=== PATIENT | male | born 1945 | race Hispanic/Latino ===

== ENCOUNTER 2024-03-29 18:06 | Emergency (ER) | payer MEDICARE ==
[~2024-03-29] VITALS: Ht 162.6 cm; Wt 77.1 kg
[~2024-03-29 18:06] MED LIST: CACL 1GM SYG IVP ONE
[2024-03-29 18:07] VITALS: O2SAT 80
[2024-03-29 18:08] VITALS: BP 0/0; PULSE 0; RESP 0; TEMP 96
--- NOTE | 2024-03-29 18:44 | ERN ---
ED Note History of Present Illness Stated Complaint: CARDIAC ARREST Chief Complaint: CPR/Full Arrest Time Seen by MD: 18:11 Dictation: 79-year-old male presents to the ED via EMS for evaluation of cardiac arrest onset [employer]. CPR is being performed with Ernst. As per EMS patient was found on his bed by his unresponsive after she had stepped out of the room for a minute. EMS mentioned they received a call at 5:11 p.m. and EMS arrived at 5:19 p.m. as per EMS patient is in V-tach and mentioned that they administered 7 EPIs and sodium bicarb. Glucose level of 322 mg/dL. EMS reports that as per , patient had open heart surgery around 10 years ago and has a pacemaker. No other medical or surgical history mentioned. Past Medical History Past Medical History: Unknown Surgical History: Unknown Review of System Dictation Unable to obtain ROS due to clinical status Initial Vital Sign VS Vital Signs Date Time Temp Pulse Resp B/P (MAP) Pulse Ox O2 Delivery O2 Flow Rate FiO2 03/29/24 18:08 96.1 0 0 0/0 80 LMA WITH BVM 15.0 Physical Exam Dictation General: Patient is unresponsive Head/Face: Normocephalic, atraumatic Eyes: Pupils are fixed and nonreactive Neck: Trachea midline Cardiovascular: No pulse present Respiratory: via RAINEY MS/Extremity: No deformities Neuro: ED Course ED Course Vital Signs Date Time Temp Pulse Resp B/P (MAP) Pulse Ox O2 Delivery O2 Flow Rate FiO2 03/29/24 18:08 96.1 0 0 0/0 80 LMA WITH BVM 15.0 Medical Decision Making MDM MDM: Differential diagnosis: Cardiac arrest, respiratory arrest, V-tach Previous outside records reviewed: Old ER visits Patient's prior external medical records from other ER visits were reviewed by me as indicated. Prior testing and results from previous visits were reviewed. Prior tests were taken into account with medical decision making and resource utilization, independent historian/historians were used to obtain complete medical history. I independently supervised CPR Procedure Progress 1807 ultrasound showed no cardiac output Additional Procedures: CPR (CPR start time 6:00 p.m. total CPR time 11 minutes. 4 Epis, 2 Bicarbs, and 1 calcium chloride given), cardioversion/defib (Shocked patient at 6:09 p.m.) DX & DISP Disposition: Discharge Departure Impression: Primary Impression: Cardiac arrest Condition: (Time of called at 6:11 p.m.) Time of Disposition: 18:32 I have reviewed, & agreed with my scribe's, documentation. (Entered by Mercedes Colon, acting as a scribe for Dr. Buchanan) I personally scribed for KAIDEN BUCHANAN MD (ANALIA) on 03/29/24 at 18:44. Electronically submitted by Mercedes Colon ([email or web address]). KAIDEN BUCHANAN MD Mar 29, 2024 18:44
--- NOTE | 2024-03-29 18:49 | NUR ---
LORNA NOTIFIED AT THIS TIME. PATIENT IS A RULE OUT. SPOKE WITH LETY. REFERENCE NUMBER [id number].
== END 2024-03-29 20:55 ==
LOC: EDH 18:06
DX: I46.9 Cardiac arrest, cause unspecified (principal)
CPT/HCPCS: 92950; 99285; 92960; 31500; J7070; J0171; J3490 ×2